=== PATIENT | male | born 1970 | race Caucasian/White ===

== ENCOUNTER → 2016-11-29 | Outpatient (CLI) | payer BC ==
[2016-11-29 08:45] LABS: BUN/CREATININE RATIO 14 (0-10)
== END ==
LOC: LAB 08:00
PROVIDERS: Emergency Medicine
DX: E78.2 Mixed hyperlipidemia (principal); F32.89 Other specified depressive episodes; N18.2 Chronic kidney disease, stage 2 (mild)
CPT/HCPCS: 36415; 80053; 80061; 84443